=== PATIENT | female | born 1980 | race Two or more races ===

== ENCOUNTER 2018-08-06 13:00 | Inpatient (IN) | payer OTHER ==
[~2018-08-06] VITALS: Ht 157.5 cm; Wt 75.3 kg
[2018-08-26] MEDS ORDERED: PRENATAL FORMU1 EAC1 PO (10:26)
[2018-08-26] MEDS ORDERED: FOLIC ACID1 MG PO (10:27)
== END 2018-08-28 12:09 | DRG 807 ==
LOC: LDR 08-25 13:00 → OB/GYN 08-26 19:00
PROC: 10E0XZZ Delivery of Products of Conception, External Approach (ICD-10-PCS; principal; 2018-08-26)
PROC: 0UQGXZZ Repair Vagina, External Approach (ICD-10-PCS; 2018-08-26)
PROC: 10907ZC Drainage of Amniotic Fluid, Therapeutic from Products of Conception, Via Natural or Artificial Opening (ICD-10-PCS; 2018-08-26)
PROC: 3E033VJ Introduction of Other Hormone into Peripheral Vein, Percutaneous Approach (ICD-10-PCS; 2018-08-26)
PROC: 4A1HXCZ Monitoring of Products of Conception, Cardiac Rate, External Approach (ICD-10-PCS; 2018-08-26)
DX: O71.4 Obstetric high vaginal laceration alone (principal); Z37.0 Single live birth; Z3A.40 40 weeks gestation of pregnancy; Z22.330 Carrier of Group B streptococcus

== ENCOUNTER 2018-08-18 07:46 | Outpatient (CLI) | payer OTHER | END 2018-08-18 08:45 | disposition home or self-care (01) | LOC: NST 07:46 | DX: Z34.83 Encounter for supervision of other normal pregnancy, third trimester (principal) ==

== ENCOUNTER 2018-08-24 13:13 | Outpatient (CLI) | payer OTHER | END 2018-08-24 15:05 | disposition home or self-care (01) | LOC: NST 13:13 | DX: Z34.83 Encounter for supervision of other normal pregnancy, third trimester (principal) ==

== ENCOUNTER → 2018-08-24 | Outpatient (CLI) | payer OTHER ==
[~2018-08-24] MED LIST: FOLIC ACID1 MG PO; PRENATAL FORMU1 EAC1 PO
== END | disposition home or self-care (01) ==
LOC: SONOGRAMA 09:43
DX: Z34.83 Encounter for supervision of other normal pregnancy, third trimester (principal)

== ENCOUNTER → 2019-03-30 | Outpatient (CLI) | payer OTHER | END | disposition home or self-care (01) | LOC: MAMO-SONO 11:18 | DX: N60.11 Diffuse cystic mastopathy of right breast (principal); Z12.31 Encounter for screening mammogram for malignant neoplasm of breast; N64.4 Mastodynia; N63.10 Unspecified lump in the right breast, unspecified quadrant; N63.20 Unspecified lump in the left breast, unspecified quadrant ==